=== PATIENT | male | born 1965 | race Two or more races ===

== ENCOUNTER 2017-05-06 16:04 | Emergency (ER) | payer BC ==
[2017-05-06 16:14] VITALS: BP 130/78
[2017-05-06] MEDS ORDERED: Ketorolac 60 MG/2 ML SDV IM ONE (16:56)
--- NOTE | 2017-05-06 17:02 | EDM.PDOC ---
ED HPI GENERAL MEDICAL PROBLEM - General Chief Complaint: General Stated Complaint: Toothache Time Seen by Provider: 05/06/17 16:40 Source of Information: Reports: Patient, RN Notes Reviewed History Limitations: Reports: No Limitations - History of Present Illness INITIAL COMMENTS - FREE TEXT/NARRATIVE: 51 year old male presents to the ED today with complaints of left upper molar dental pain for the past week. He has been struggling with this for quite some time but says it's been worsening. He says he has tried to get into "every" dentist in town and has been unable to get in. He took aspirin today with little improvement. He denies fever, chills, foul taste in mouth, drainage from tooth, or facial swelling. Treatments IMPORT/EXPORT ADMINISTRATOR: Reports: Other (see below) Other Treatments IMPORT/EXPORT ADMINISTRATOR: Tata Aspirin Tooth/Teeth Pain Score (Numeric/FACES): 10 - Related Data Allergies Allergy/AdvReac Type Severity Reaction Status Date / Time No Known Allergies Allergy Verified 05/06/17 16:11 Home Meds: Home Meds Albuterol [Proventil HFA] 2 puff INH QID PRN #1 inhaler 12/23/15 [Rx] Canagliflozin [Invokana] 300 mg PO DAILY 12/23/15 [History] Ibuprofen [Advil] 200 mg PO Q6H PRN 12/23/15 [History] sitaGLIPtin Phos/Metformin HCl [Janumet Xr 50-1,000 mg Tablet] 1 tab PO DAILY [History] Past Medical History HEENT History: Reports: Impaired Vision Other HEENT History: glasses Cardiovascular History: Reports: High Cholesterol Musculoskeletal History: Reports: Fracture Other Musculoskeletal History: groin tear Endocrine/Metabolic History: Reports: Diabetes, Type II - Infectious Disease History Infectious Disease History: Reports: Chicken Pox, Influenza Social & Family History - Family History Family Medical History: Noncontributory - Tobacco Use Smoking Status *Q: Never Smoker Years of Tobacco use: 20 Packs/Tins Daily: 1.5 - Recreational Drug Use Recreational Drug Use: No ED ROS GENERAL - Review of Systems Review Of Systems: See Below Constitutional: Denies: Fever, Chills HEENT: Reports: Dental Pain. Denies: Ear Pain ED EXAM, GENERAL - Physical Exam Exam: See Below Exam Limited By: No Limitations General Appearance: Alert, WD/WN, No Apparent Distress Throat/Mouth: Normal Gums, Normal Oropharynx, Normal Voice, No Airway Compromise , Other (dental tenderness to left upper posterior molar. Caries noted. No swelling or abscess appreciated. ) Head: Atraumatic, Normocephalic. No: Facial Swelling, Facial Tenderness, Sinus Tenderness Neck: Normal Inspection, Supple, Non-Tender, Full Range of Motion. No: Lymphadenopathy (L), Lymphadenopathy (R) Course - Vital Signs Last Recorded V/S: Last Vital Signs Temp 97.5 F 05/06/17 16:11 Pulse 79 05/06/17 16:11 Resp 16 05/06/17 16:11 BP 130/78 05/06/17 16:11 Pulse Ox 97 05/06/17 16:11 - Orders/Labs/Meds Meds: Medications Discontinued Medications Generic Name Dose Route Start Last Admin Trade Name Manuelq PRN Reason Stop Dose Admin Ketorolac Tromethamine 60 mg 05/06/17 16:56 05/06/17 17:02 Toradol IM 05/06/17 16:57 60 mg ONETIME ONE Administration Departure - Departure Time of Disposition: 16:57 Disposition: Home, Self-Care 01 Condition: Good Clinical Impression: Pain, dental - Discharge Information Instructions: Dental Caries, [id number] Referrals: Daisy Britt NP [Primary Care Provider] - Forms: ED Department Discharge Additional Instructions: Follow-up with Dentist vishnu Ibuprofen 800mg 3 times a day as needed for pain Stop aspirin while taking Ibuprofen Tylenol 1000mg every 8 hours for pain not relieved by Ibuprofen Augmentin 1 tab twice a day for 7 days Return to ER with any new or worsening problems Local dentists in town: 1) [facility] 2) [facility] 3) [facility] 4) [facility] 5) [facility] 6) [facility] 7) Dr. Lugo 8) [facility] (This is a new practice that is taking new patients)
== END 2017-05-06 17:10 | disposition home or self-care (01) ==
LOC: JD.ED 16:04
DX: K02.9 Dental caries, unspecified (principal)
CPT/HCPCS: 96372; 99283; J1885

== ENCOUNTER 2017-10-13 03:47 | Emergency (ER) | payer BC ==
[2017-10-13 03:55] VITALS: BP 175/101
--- NOTE | 2017-10-13 04:23 | EDM.PDOC ---
ED HPI GENERAL MEDICAL PROBLEM - General Chief Complaint: Laceration Stated Complaint: CUT ON GROIN AREA Time Seen by Provider: 10/13/17 03:54 Source of Information: Reports: Patient History Limitations: Reports: No Limitations - History of Present Illness INITIAL COMMENTS - FREE TEXT/NARRATIVE: This is a 52-year-old male. He comes tonight because he has a laceration to the right side of his scrotum. He indicates that his significant other had some sharp fingernails that cut him in the scrotum. He did not elaborate on the process. He is up-to-date with his tetanus. There is no penis injury and has no other acute injuries. right scrotum Pain Score (Numeric/FACES): 9 - Related Data Allergies Allergy/AdvReac Type Severity Reaction Status Date / Time No Known Allergies Allergy Verified 05/06/17 16:11 Home Meds: Home Meds Albuterol [Proventil HFA] 2 puff INH QID PRN #1 inhaler 12/23/15 [Rx] Canagliflozin [Invokana] 300 mg PO DAILY 12/23/15 [History] sitaGLIPtin Phos/Metformin HCl [Janumet Xr 50-1,000 mg Tablet] 1 tab PO DAILY [History] atorvaSTATin [Lipitor] 10/13/17 [History] Past Medical History HEENT History: Reports: Impaired Vision Other HEENT History: glasses Cardiovascular History: Reports: High Cholesterol Musculoskeletal History: Reports: Fracture Other Musculoskeletal History: groin tear Endocrine/Metabolic History: Reports: Diabetes, Type II - Infectious Disease History Infectious Disease History: Reports: Chicken Pox, Influenza Social & Family History - Family History Family Medical History: Noncontributory - Tobacco Use Smoking Status *Q: Never Smoker Years of Tobacco use: 20 Packs/Tins Daily: 1.5 - Recreational Drug Use Recreational Drug Use: No ED ROS GENERAL - Review of Systems Review Of Systems: See Below Constitutional: Reports: No Symptoms HEENT: Reports: No Symptoms Respiratory: Reports: No Symptoms Cardiovascular: Reports: No Symptoms Endocrine: Reports: No Symptoms GI/Abdominal: Reports: No Symptoms : Reports: Other (As per history of present illness) Musculoskeletal: Reports: No Symptoms Skin: Reports: Other (As per history of present illness) Neurological: Reports: No Symptoms Psychiatric: Reports: No Symptoms Hematologic/Lymphatic: Reports: No Symptoms ED EXAM, SKIN/RASH Exam: See Below Exam Limited By: No Limitations General Appearance: Alert, WD/WN, Mild Distress Eye Exam: Bilateral Eye: Normal Inspection Ears: Normal External Exam Nose: Normal Inspection Throat/Mouth: Normal Inspection, Normal Lips, Normal Voice, No Airway Compromise Head: Normocephalic Neck: Supple Respiratory/Chest: No Respiratory Distress (Male) Exam: Normal Inspection, Other (He is noted on the right upper scrotal area to have a 3 cm superficial laceration that does open up slightly, there is no other acute findings). No: Circumcised Back Exam: Full Range of Motion Extremities: Normal Inspection, Normal Range of Motion Neurological: Alert, Oriented Psychiatric: Normal Affect, Normal Mood Skin: Warm, Dry ED SKIN PROCEDURES - Laceration/Wound Repair Right Scrotum Lac/Wound length In cm: 3 Appearance: Superficial, Clean Distal NVT: Neuro & Vascular Intact Skin Prep: Chlorhexidine (Hibiciens), Saline Saline Irrigation (cc's): 100 Exploration/Debridement/Repair: Wound Explored, Explored to Base Closed with: Dermabond Drain Placement: No Sterile Dressing Applied: Nurse Tetanus Status Addressed: Yes Complications: No Progress/Comments: We irrigated the wound and removed all the hair around the laceration. Then we placed Dermabond along the entire 3 cm with good approximation of the skin edges. There does not appear to be any evidence of infection at this time. Course - Vital Signs Last Recorded V/S: Last Vital Signs Temp 97.4 F 10/13/17 03:52 Pulse 103 H 10/13/17 03:52 Resp 16 10/13/17 03:52 BP 175/101 H 10/13/17 03:52 Pulse Ox 98 10/13/17 03:52 - Re-Assessments/Exams Free Text/Narrative Re-Assessment/Exam: 10/13/17 04:20 The patient tolerated the procedure well. Departure - Departure Time of Disposition: 04:21 Disposition: Home, Self-Care 01 Condition: Good Clinical Impression: Scrotal laceration Qualifiers: Encounter type: initial encounter Qualified Code(s): S31.31XA - Laceration without foreign body of scrotum and testes, initial encounter - Discharge Information Instructions: Laceration Care, Adult, [id number] Referrals: Daisy Britt NP [Primary Care Provider] - Additional Instructions: Try to keep the area clean and dry for at least 72 hours, wear some tight briefs so your scrotum doesn't stretch or pull on the laceration, watch for infection such as redness or drainage and if there is any signs of infection return to the ER or see your family doctor right away, the glue will normally peel off in 4-5 days but the wound should be closed and healing well by then
== END 2017-10-13 04:25 | disposition home or self-care (01) ==
LOC: JD.ED 03:47
DX: S31.31XA Laceration without foreign body of scrotum and testes, initial encounter (principal); E78.00 Pure hypercholesterolemia, unspecified; E11.9 Type 2 diabetes mellitus without complications; Z79.899 Other long term (current) drug therapy; X58.XXXA Exposure to other specified factors, initial encounter
CPT/HCPCS: 12002; 99282-25; 99283-25

== ENCOUNTER 2024-02-28 09:22 | Emergency (ER) | payer BC ==
[2024-02-28] MEDS: Famotidine 20 MG/2 ML SDV IVPUSH ONE (09:43)
[2024-02-28] MEDS: methylPREDNISolone Sodium Succinate 125 MG/2 ML SDV IVPUSH ONE (09:43)
[2024-02-28] MEDS: EPINEPHrine 1 MG/ML SDV SUBCUT ONE (09:43)
[2024-02-28] MEDS: diphenhydrAMINE 50 MG/ML SDV IVPUSH ONE (09:43)
[2024-02-28] MEDS: Sodium Chloride 0.9% 1,000 ML IV ONE (09:50)
[2024-02-28 11:03] VITALS: BP 136/73; PULSE 75
== END 2024-02-28 11:01 | disposition home or self-care (01) ==
LOC: JD.ED 09:22
DX: T63.441A Toxic effect of venom of bees, accidental (unintentional), initial encounter (principal); Z79.899 Other long term (current) drug therapy
CPT/HCPCS: 96372; 96374; 96375; 99283-25; J0171; J1200; J2919; J3490; J7030